=== PATIENT | male | born 1985 | race Caucasian/White ===

== ENCOUNTER 2023-06-17 21:00 | Emergency (ER) | payer MEDICAID, OTHER ==
[~2023-06-17] VITALS: Ht 180.3 cm; Wt 78.0 kg
--- NOTE | 2023-06-17 21:21 | ED GU-Male ---
General Chief Complaint: - Reproductive Stated Complaint: GROIN PAIN| Source: patient Exam Limitations: no limitations History of Present Illness Date Seen by Provider: Jun 17, 2023 Time Seen by Provider: 21:04 Initial Comments 38-year-old male with no pertinent past medical history coming in due to initially testicle pain. He states his right testicle has been hurting since last July. He states he has had an ultrasound done, and an upper and lower GI scope. He was on antibiotics a few times and they originally diagnosed with epididymitis. He states that the pain never improved, and he was concerned that they got the diagnosis wrong. Pain somewhat worsened tonight so he wanted to be reevaluated to see if we could figure out what was going on. He states the pain really starts in his right flank, denies ever having a CT scan and no prior history of kidney stones. Denies any dysuria, hematuria, fever, chills, nausea, vomiting, or any other concerns. Allergies and Home Medications Allergies Coded Allergies: No Known Drug Allergies (Unverified , 06/17/23) Patient Home Medication List Home Medication List Reviewed: Yes Review of Systems Review of Systems Constitutional: No fever EENTM: no symptoms reported Respiratory: no symptoms reported Cardiovascular: no symptoms reported Gastrointestinal: no symptoms reported Genitourinary: see HPI Musculoskeletal: no symptoms reported Skin: no symptoms reported Psychiatric/Neurological: No Symptoms Reported Endocrine: No Symptoms Reported Past Ikcihur-Rctyvk-Yjlixe Hx Patient Social History Tobacco Use?: Yes Tobacco type used: Cigarettes Past Medical History Surgery/Hospitalization HX: hernia repair Surgeries: Yes Physical Exam Vital Signs Capillary Refill : Height, Weight, BMI Height: '" Weight: lbs. oz. kg; BMI Method: General Appearance: WD/WN, no apparent distress HEENT: PERRL/EOMI, normal ENT inspection, pharynx normal Neck: non-tender, full range of motion, supple, normal inspection Cardiovascular: regular rate, rhythm, no edema, no murmur Respiratory: chest non-tender, lungs clear, normal breath sounds, no respiratory distress, no accessory muscle use Gastrointestinal: normal bowel sounds, non tender, soft; No distended, No guarding, No rebound Male: normal genitalia, no hernia, other (Mild testicular tenderness on the right along the epididymis, no swelling noted, pain slightly improved with elevation of the testicles) Back: normal inspection, no vertebral tenderness, CVA tenderness (R) Extremities: normal range of motion, non-tender, normal inspection, no pedal edema, no calf tenderness, normal capillary refill Neurologic/Psychiatric: no motor/sensory deficits, alert, normal mood/affect Skin: normal color, warm/dry Progress/Results/Core Measures Suspected Sepsis SIRS Temperature: Pulse: Respiratory Rate: Blood Pressure / Mean: Results/Orders Lab Results Laboratory Tests Test 06/17/23 21:20 Range/Units My Orders Orders - VIJAYA PANIAGUA MD Ct Abdomen/Pelvis Wo (06/17/23 21:17) Ua Culture If Indicated (06/17/23 21:18) Vital Signs/I&O Capillary Refill : Progress Note : Progress Note 38-year-old male with above history coming in due to right testicle pain radiating from the right flank. ABCs were intact vitals were stable on pr esentation. Physical exam with right testicle pain mostly over the epididymis with no significant swelling. He also has right CVA tenderness. His cremasteric reflex is intact and this has been ongoing for over a year making torsion very unlikely. I did a [id number] ultrasound showing Doppler signals in both testicles with the vasculature, increasing signal over the epididymis on the right. Given he has had a thorough work-up, he has never had a CT scan, I will do 1 to assess for other causes of pain that would radiate to the groin such as a kidney stone. CT abdomen pelvis ordered and interpreted by me showing no obvious obstructing kidney stone. It was read as negative for acute findings per the radiologist. Likely is epididymitis, could be recurrent based on the patient's practices. We will treat him with antibiotics. I believe he stable for discharge with outpatient follow-up. He was sent home with strict return precautions. Diagnostic Imaging Diagonstic Imaging: CT (abd/pelvis) Comments [facility]. [place], [place] NAME: [facility] REC#: [id number] PT STATUS: REG ER : 1985 PHYSICIAN: VIJAYA PANIAGUA MD ADMIT DATE: 06/17/23/ER FS Draft Date of Exam:08/06/23 CT ABDOMEN/PELVIS WO EXAMINATION: CT abdomen and pelvis without contrast. TECHNIQUE: Multiple contiguous axial images were obtained through the abdomen and pelvis without the use of intravenous contrast. All CT scans use one or more of the following dose optimizing techniques: automated exposure control, MA and/or KvP adjustment based on patient size and exam type or iterative reconstruction. HISTORY: R flank pain radiating to groin. COMPARISON: None available. FINDINGS: Lung bases: The lung bases are clear. Solid organs: The liver is normal. The gallbladder is normal. There is no biliary ductal dilation. Pancreas is normal. Spleen is normal. Adrenal glands are normal. Punctate nonobstructing left renal calculus measuring 0.1 cm. No hydronephrosis. Bowel: The stomach and small bowel are normal without obstruction. The colon is normal. The appendix is normal. Peritoneum: There is no intraperitoneal free fluid or free air. No suspicious lymphadenopathy. Vasculature: Normal without aneurysm. Musculoskeletal: No suspicious osseous lesion or compression fracture. Pelvis: The prostate gland is normal. The urinary bladder is decompressed which limits evaluation. IMPRESSION: 1. No acute abnormality in the abdomen or pelvis. 2. Nonobstructing left renal calculus measuring 0.1 cm without hydronephrosis. Dictated on workstation # [id number] Dict: 06/17/232142 Trans: 06/17/232148 [facility] [id number] Interpreted by: SILVER HICKS DO Electronically signed by: Departure Impression Primary Impression: Testicle pain Qualified Codes: N50.811 - Right testicular pain Disposition: 01 HOME, SELF-CARE Condition: Stable Departure-Patient Inst. Decision time for Depature: 22:20 Referrals: JUAN A BADILLO MD (PCP/Family) Primary Care Physician Patient Instructions: Epididymitis (DC) Add. Discharge Instructions: This does seem most consistent with epididymitis. He will be on an antibiotic for the next 10 days. Please follow-up with your regular doctor if you do not see improvement as you may need a referral to a urologist. Scripts Doxycycline Hyclate (Doxycycline Hyclate) 100 Mg Tablet 100 MG PO BID for 10 Days, #20 TAB 0 Refills Prov: VIJAYA PANIAGUA MD 06/17/23 Work/School Note: Work Release Form Date Seen in the Emergency Department: Jun 17, 2023 Return to Work: Jun 18, 2023 Restrictions: No Restrictions VIJAYA PANIAGUA MD Jun 17, 2023 21:21
[2023-06-17 21:32] LABS: CLARITY,URINE TURBID; GLUCOSE, URINE (UA) TRACE (NEGATIVE); KETONES,URINE 1+ (NEGATIVE); LEUKOCYTE ESTERASE ,URINE NEGATIVE (NEGATIVE); NITRITE,URINE NEGATIVE (NEGATIVE); PROTEIN,URINE 3+ (NEGATIVE)
--- NOTE | 2023-06-17 21:49 | Diagnostic Imaging Report ---
EXAMINATION: CT abdomen and pelvis without contrast. TECHNIQUE: Multiple contiguous axial images were obtained through the abdomen and pelvis without the use of intravenous contrast. All CT scans use one or more of the following dose optimizing techniques: automated exposure control, MA and/or KvP adjustment based on patient size and exam type or iterative reconstruction. HISTORY: R flank pain radiating to groin. COMPARISON: None available. FINDINGS: Lung bases: The lung bases are clear. Solid organs: The liver is normal. The gallbladder is normal. There is no biliary ductal dilation. Pancreas is normal. Spleen is normal. Adrenal glands are normal. Punctate nonobstructing left renal calculus measuring 0.1 cm. No hydronephrosis. Bowel: The stomach and small bowel are normal without obstruction. The colon is normal. The appendix is normal. Peritoneum: There is no intraperitoneal free fluid or free air. No suspicious lymphadenopathy. Vasculature: Normal without aneurysm. Musculoskeletal: No suspicious osseous lesion or compression fracture. Pelvis: The prostate gland is normal. The urinary bladder is decompressed which limits evaluation. IMPRESSION: 1. No acute abnormality in the abdomen or pelvis. 2. Nonobstructing left renal calculus measuring 0.1 cm without hydronephrosis. Dictated by: Dictated on workstation # [id number]
[2023-06-17 21:51] LABS: COLOR,URINE DK YELLOW
[2023-06-17 21:54] LABS: BACTERIA,URINE NEGATIVE /HPF
[2023-06-17 21:56] LABS: AMORPHOUS SEDIMENT,UR FEW AMOR URATES /LPF; CALCIUM OXALATE CRYSTALS,UR FEW /LPF; HYALINE CASTS, URINE 25-50 /LPF; SQUAMOUS EPITHELIAL CELL,UR RARE /HPF
[2023-06-17 21:58] LABS: URINE OTHER FEW SPERM /HPF
[2023-06-17] MEDS ORDERED: DOXY100T2 PO (21:59)
[2023-06-17] MEDS ORDERED: cefTRIAXone 1,000 MG VIAL IV/IM IM ONE (22:00)
[2023-06-17] MEDS ORDERED: HYDROcodone/ACETAMINOPHEN 5 MG/325 MG TABLET PO ONE (22:00)
[2023-06-17] MEDS ORDERED: LIDOCAINE 1% INJ 20 ML VIAL INJ ONE (22:00)
[2023-06-17 22:02] LABS: BILIRUBIN,URINE 1+ (NEGATIVE)
[2023-06-17 22:28] VITALS: BP 108/74
== END 2023-06-17 22:28 | disposition home or self-care (01) ==
LOC: ER FS 21:04
DX: N50.811 Right testicular pain (principal); F17.210 Nicotine dependence, cigarettes, uncomplicated
CPT/HCPCS: 74176; 81000; 87088